=== PATIENT | female | born 1970 | race American Indian/Alaskan Native ===

== ENCOUNTER 2022-07-14 17:19 | Emergency (ER) | payer SELFPAY ==
--- NOTE | 2022-07-14 21:40 | Emergency Department Report ---
ED General Adult HPI - General Chief complaint: Urogenital-Female Stated complaint: PAIN IN LEFT BREAST AND CLEAR DRAINAGE Time Seen by Provider: 07/14/22 21:22 Source: patient Mode of arrival: Ambulatory Limitations: No Limitations - History of Present Illness Initial comments: Left breast pain the last few days with nipple discharge today. -: Gradual, days(s) (4) - Related Data Previous Rx's Medication Instructions Recorded Last Taken Type Dicloxacillin Sodium 500 mg PO QID #40 cap 07/14/22 Unknown Rx Ketorolac [Toradol] 10 mg PO Q6H PRN #10 07/14/22 Unknown Rx Allergies Allergy/AdvReac Type Severity Reaction Status Date / Time No Known Allergies Allergy Verified 07/14/22 19:30 ED Review of Systems ROS: Stated complaint: PAIN IN LEFT BREAST AND CLEAR DRAINAGE Other details as noted in HPI Comment: All other systems reviewed and negative ED Past Medical Hx - Medications Home Medications: Home Medications Medication Instructions Recorded Confirmed Last Taken Type Dicloxacillin Sodium 500 mg PO QID #40 cap 07/14/22 Unknown Rx Ketorolac [Toradol] 10 mg PO Q6H PRN #10 07/14/22 Unknown Rx ED Physical Exam - General Limitations: No Limitations General appearance: alert, in no apparent distress - Head Head exam: Present: atraumatic, normocephalic - Eye Eye exam: Present: normal appearance, PERRL, EOMI Pupils: Present: normal accommodation - ENT ENT exam: Present: normal exam, normal orophraynx, mucous membranes moist - Neck Neck exam: Present: normal inspection - Respiratory Respiratory exam: Present: normal lung sounds bilaterally. Absent: respiratory distress - Cardiovascular Cardiovascular Exam: Present: regular rate, normal rhythm. Absent: systolic murmur, diastolic murmur, rubs, gallop - GI/Abdominal GI/Abdominal exam: Present: soft, normal bowel sounds - Extremities Exam Extremities exam: Present: normal inspection - Back Exam Back exam: Present: normal inspection - Neurological Exam Neurological exam: Present: alert, oriented X3 - Psychiatric Psychiatric exam: Present: normal affect, normal mood - Skin Skin exam: Present: warm, dry, intact, normal color. Absent: rash Critical care attestation.: If time is entered above; I have spent that time in minutes in the direct care of this critically ill patient, excluding procedure time. ED Disposition Disposition: 01 HOME / SELF CARE / HOMELESS Condition: Stable Instructions: Mastitis Prescriptions: Dicloxacillin Sodium 500 mg PO QID #40 cap Ketorolac [Toradol] 10 mg PO Q6H PRN #10 PRN Reason: Pain Referrals: [facility] [Other] - 3-5 Days [facility] [Provider Group] - 3-5 Days [facility] [Provider Group] - 3-5 Days MITZI PERLA MD [Staff Physician] - 3-5 Days
[2022-07-14 23:01] VITALS: BP 137/95
== END 2022-07-14 21:45 | disposition home or self-care (01) ==
LOC: ED 17:19
DX: N64.4 Mastodynia (principal); Z79.899 Other long term (current) drug therapy
CPT/HCPCS: 99282